=== PATIENT | female | born 1990 | race American Indian/Alaskan Native ===

== ENCOUNTER 2021-02-21 14:21 | Emergency (ER) | payer MEDICAID, OTHER ==
[2021-02-21 17:03] VITALS: BP 107/76
--- NOTE | 2021-02-21 19:01 | Emergency Department Report ---
ED General Adult HPI - General Chief complaint: Neuro Symptoms/Deficit Stated complaint: RAPID HEART RATE Time Seen by Provider: 02/21/21 18:44 Source: patient Mode of arrival: Ambulatory Limitations: No Limitations - History of Present Illness Initial comments: 30-year-old obese female with no significant past history presents to the ER today with complaints of palpitations. Patient states that symptoms started 2 days ago. She states that symptoms occurs mainly last night when she is laying down getting ready for bed and sometimes when she wakes up in the morning. She states that she feels like her heart is racing and then she feels like her head is heavy and she reports associated chest discomfort and shortness of breath when her symptoms started. She reports intermittent nausea as well. She states that she decided come in to get checked out today because it was lasting longer than typical. She denies any associated abdominal pain, vomiting, or diarrhea, URI symptoms or cough, calf pain or lower extremity swelling. She states that her caffeine intake is keep the 1 cup of coffee in the morning and may be an energizing drink later on that day but typically no more than that. She states that she smokes weed, but denies any other illicit drug use. She denies any known thyroid disease. She denies any history of PE or DVT. She states she recently came back from [place], it was 2hr flight but she denies any calf pain or leg swelling. She denies any recent surgery, hx cancer, and denies hormonal use. She denies hx CAD or lung disease MD Complaint: Palpitations -: Gradual, days(s) (2) - Related Data Previous Rx's Medication Instructions Recorded Last Taken Type Ondansetron [Zofran Odt] 4 mg PO Q6HR #20 tab.rapdis 09/29/15 Unknown Rx Sulfamethoxazole/Trimethoprim 1 each PO BID #14 tablet 09/29/15 Unknown Rx [Bactrim DS TAB] Naproxen [EC-Naproxen] 500 mg PO BID PRN #14 tablet. 02/21/20 Unknown Rx methOCARBAMOL [Robaxin TAB] 500 mg PO BID PRN #12 tab 02/21/20 Unknown Rx Amoxicillin [Trimox CAP] 500 mg PO BID #20 capsule 04/21/20 Unknown Rx Allergies Allergy/AdvReac Type Severity Reaction Status Date / Time No Known Allergies Allergy Unverified 09/28/15 19:02 ED Review of Systems ROS: Stated complaint: RAPID HEART RATE Other details as noted in HPI Comment: All other systems reviewed and negative Constitutional: denies: chills, fever Eyes: denies: eye pain, eye discharge, vision change ENT: denies: ear pain, throat pain, dental pain, hearing loss, epistaxis, congestion Respiratory: shortness of breath. denies: cough, SOB with exertion, SOB at rest, wheezing Cardiovascular: as per HPI, chest pain, palpitations. denies: dyspnea on exertion, edema, syncope, paroxysmal nocturnal dyspnea Gastrointestinal: nausea. denies: abdominal pain, vomiting, diarrhea, constipation, hematemesis, melena, hematochezia Genitourinary: denies: urgency, dysuria, frequency, hematuria, discharge, abnormal menses Musculoskeletal: denies: back pain, joint swelling, arthralgia Skin: denies: rash, lesions, change in color, change in hair/nails Neurological: denies: headache, weakness, numbness, paresthesias, confusion, abnormal gait, vertigo Psychiatric: denies: anxiety, depression, auditory hallucinations, visual hallucinations, homicidal thoughts, suicidal thoughts Hematological/Lymphatic: as per HPI. denies: easy bruising, swollen glands ED Past Medical Hx - Past Medical History Previous Medical History?: Yes Hx Asthma: Yes - Surgical History Hx Appendectomy: Yes Additional Surgical History: gallbladder surgery - Social History Smoking Status: Never Smoker - Medications Home Medications: Home Medications Medication Instructions Recorded Confirmed Last Taken Type Ondansetron [Zofran Odt] 4 mg PO Q6HR #20 tab.rapdis 09/29/15 Unknown Rx Sulfamethoxazole/Trimethoprim 1 each PO BID #14 tablet 09/29/15 Unknown Rx [Bactrim DS TAB] Naproxen [EC-Naproxen] 500 mg PO BID PRN #14 tablet.dr 02/21/20 Unknown Rx methOCARBAMOL [Robaxin TAB] 500 mg PO BID PRN #12 tab 02/21/20 Unknown Rx Amoxicillin [Trimox CAP] 500 mg PO BID #20 capsule 04/21/20 Unknown Rx ED Physical Exam - General Limitations: No Limitations General appearance: alert, in no apparent distress - Head Head exam: Present: atraumatic, normocephalic, normal inspection - Eye Eye exam: Present: normal appearance, PERRL, EOMI Pupils: Present: normal accommodation - ENT ENT exam: Present: normal exam, mucous membranes moist - Neck Neck exam: Present: normal inspection, full ROM - Respiratory Respiratory exam: Present: normal lung sounds bilaterally. Absent: respiratory distress, wheezes, rales - Cardiovascular Cardiovascular Exam: Present: regular rate, normal rhythm, normal heart sounds - GI/Abdominal GI/Abdominal exam: Present: soft. Absent: distended, tenderness, guarding - Extremities Exam Extremities exam: Present: normal inspection, normal capillary refill. Absent: pedal edema, calf tenderness - Back Exam Back exam: Present: normal inspection - Neurological Exam Neurological exam: Present: alert, oriented X3, CN II-XII intact, normal gait - Psychiatric Psychiatric exam: Present: normal affect, normal mood - Skin Skin exam: Present: intact ED Course Vital Signs 02/21/21 16:59 Temperature 98.6 F Pulse Rate 88 Respiratory 18 Rate Blood Pressure 107/76 O2 Sat by Pulse 100 Oximetry ED Medical Decision Making - Lab Data Result diagrams: 02/21/21 19:00 02/21/21 19:00 - Radiology Data Radiology results: report reviewed Patient: MARY COLON MR#: [id number] : 1990 Acct:[id number] Age/Sex: 30 / F ADM Date: 02/21/21 Loc: ED Attending Dr: Ordering Physician: NASEEM FOSS Date of Service: 02/21/21 Procedure(s): XR chest routine 2V Accession Number(s): [id number] cc: NASEEM FOSS Fluoro Time In Minutes: CHEST 2 VIEWS INDICATION / CLINICAL INFORMATION: palpitations. COMPARISON: None available. FINDINGS: SUPPORT DEVICES: None. HEART / MEDIASTINUM: No significant abnormality. LUNGS / PLEURA: No significant pulmonary or pleural abnormality. No pneumothorax. ADDITIONAL FINDINGS: No significant additional findings. IMPRESSION: 1. No acute findings. Signer Name: Lake Mckeon MD Signed: 02/21/2021 7:39 PM Workstation Name: [id number] Transcribed By: Dictated By: aLke Mckeon MD Electronically Authenticated By: Lake Mckeon MD Signed Date/Time: 02/21/211938 DD/ 37 TD/TT: - Medical Decision Making Labs reviewed and unremarkable, including neg trop and EKG normal with no signi ficant dysrhythmias, acute MS with significant acute ischemic changes. The patient is resting comfortably and, is alert and in no distress. SHe is not toxic or ill appearing. She is neurologically intact and ambulatory in ED. Her history, exam, diagnostic testing and current condition do not suggest that this patient is having acute myocardial infarction (Heart score 0), significant arrhythmia, unstable angina, esophageal perforation, pulmonary embolism (PERC 0), aortic dissection, pneumothorax, severe pneumonia, sepsis or other significant pathology that would warrant further testing, continued ED treatment, admission or cardiology or other specialist consultation at this time. Her vital signs have been stable. The patient's condition is stable and appropriate for discharge. The patient will pursue further outpatient evaluation with the primary care physician, or other designated physician or lead tinner. Critical care attestation.: If time is entered above; I have spent that time in minutes in the direct care of this critically ill patient, excluding procedure time. ED Disposition Clinical Impression: Palpitations Disposition: DC- TO HOME OR SELFCARE Is pt being admited?: No Does the pt Need Aspirin: No Condition: Stable Instructions: Palpitations, [id number] Additional Instructions: I recommend drinking lots of fluids. Also recommend staying away from any caffeinated products for now until follow-up with primary care doctor and lead tinner. Return to ED if symptoms changes or worsens. Referrals: MEGA ONEILL MD [Staff Physician] - 3-5 Days NAKUL SMITH MD [Staff Physician] - 3-5 Days Forms: Work/School Release Form(ED) Time of Disposition: 21:07
--- NOTE | 2021-02-21 19:43 | XRay Report ---
CHEST 2 VIEWS INDICATION / CLINICAL INFORMATION: palpitations. COMPARISON: None available. FINDINGS: SUPPORT DEVICES: None. HEART / MEDIASTINUM: No significant abnormality. LUNGS / PLEURA: No significant pulmonary or pleural abnormality. No pneumothorax. ADDITIONAL FINDINGS: No significant additional findings. IMPRESSION: 1. No acute findings. Signer Name: Lake Mckeon MD Signed: 02/21/2021 7:39 PM Workstation Name: [id number]
[2021-02-21 19:53] LABS: Basophils % (Auto) 0.3 % (0.0-1.8); Eosinophils # (Auto) 0.1 K/mm3 (0.0-0.4); Eosinophils % (Auto) 0.8 % (0.0-4.3); Hematocrit 39.6 % (30.3-42.9); Hemoglobin 13.6 gm/dl (10.1-14.3); Lymphocytes # (Auto) 2.9 K/mm3 (1.2-5.4); Lymphocytes % (Auto) 33.7 % (13.4-35.0); Mean Corpuscular HGB Conc 34 % (30-34); Mean Corpuscular Volume 87 fl (79-97); Monocytes # (Auto) 0.6 K/mm3 (0.0-0.8); Monocytes % (Auto) 7.1 % (0.0-7.3); Platelet Count 382 K/mm3 (140-440); Red Blood Count 4.55 M/mm3 (3.65-5.03); Red Cell Distribution Width 13.8 % (13.2-15.2)
[2021-02-21 20:04] LABS: Alanine Aminotransferase 28 units/L (7-56); Albumin 3.6 g/dL (3.9-5); BUN/Creatinine Ratio 8; Blood Urea Nitrogen 6 mg/dL (7-17); Calcium 8.5 mg/dL (8.4-10.2); Hemolysis Index 7
[2021-02-21 21:04] LABS: Amphetamine Screen,Urine Negative; Benzodiazepines Screen,Urine Negative; Cocaine Screen,Urine Negative; Methadone Screen,Urine Negative; Opiate Screen,Urine Negative
[2021-02-21 21:55] LABS: Cannabinoid Screen,Urine Positive
--- NOTE | 2021-02-24 17:15 | Electrocardiograph Report ---
[facility] Test Date: 2021-02-21 Test Time: 17:02:52 Pat Name: MARY COLON Department: Room: Gender: F [employer] Equipment Test Engineer: JOSEFA : 1990 Requested By: VEENA SILVERIO Order Number: [id number] Reading MD: Adolfo Aguirre Measurements Intervals [place] Rate: 61 P: 68 [place]: 183 QRS: 54 QRSD: 68 T: 17 QT: 406 QTc: 409 Interpretive Statements Sinus rhythm Low voltage, precordial leads No previous ECG available for comparison Electronically Signed On 02-24-2021 17:15:36 EDT by Adolfo Aguirre
== END 2021-02-21 21:29 | disposition home or self-care (01) ==
LOC: ED 14:21
DX: R00.2 Palpitations (principal); J45.909 Unspecified asthma, uncomplicated; Z90.49 Acquired absence of other specified parts of digestive tract; Z79.2 Long term (current) use of antibiotics; Z79.899 Other long term (current) drug therapy
CPT/HCPCS: 36415; 71046; 80053; 80307; 83735; 84443; 84484; 85025; 93005